=== PATIENT | female | born 1960 | race Caucasian/White ===

== ENCOUNTER 2018-07-21 15:22 | Emergency (ER) | payer BC ==
[~2018-07-21] VITALS: Ht 162.6 cm; Wt 95.2 kg
[~2018-07-21 15:22] MED LIST: BENZ100A; CARI350; CLIN300; CYCL10 PO; DOXY100 PO; ERGO50000 PO; ETOD400; HYDACE10B PO; HYDACE5 PO; IBUP800 PO; META800 PO; RXCYCL10 PO; SERT100
[2018-07-21] MEDS ORDERED: CYAN500 (16:38)
[2018-07-21] MEDS ORDERED: FLAX (16:38)
== END 2018-07-21 16:41 | disposition home or self-care (01) ==
LOC: ER 15:22
DX: M25.511 Pain in right shoulder (principal); M25.531 Pain in right wrist; M25.551 Pain in right hip; M25.521 Pain in right elbow; G89.29 Other chronic pain; R73.03 Prediabetes; Z87.01 Personal history of pneumonia (recurrent); Z88.0 Allergy status to penicillin; Z88.1 Allergy status to other antibiotic agents; Z88.5 Allergy status to narcotic agent; Z79.899 Other long term (current) drug therapy; W19.XXXA Unspecified fall, initial encounter
CPT/HCPCS: 73030; 73110; 73502

== ENCOUNTER 2020-12-02 21:47 | Emergency (ER) | payer OTHER ==
[~2020-12-02] VITALS: Ht 162.6 cm; Wt 93.9 kg
[~2020-12-02 21:47] MED LIST changes: +CYAN500; +FLAX
[2020-12-02] MEDS ORDERED: Acerola C500 MG PO (22:41)
[2020-12-02 23:05] LABS: Calcium, Ionized (POC) 1.04 mmol/L (1.10-1.46); Chloride (POC) 99 mmol/L (98-108); Glucose (ISTAT POC) 118 mg/dL (70-99); Hemoglobin (POC) 13.9 g/dL (12.0-16.0); Potassium (POC) 3.8 mmol/L (3.5-5.5); Sodium (POC) 136 mmol/L (135-148); Total CO2 (POC) 25 mmol/L (21-32)
== END 2020-12-03 00:38 | disposition home or self-care (01) ==
LOC: ER 21:47
PROVIDERS: Emergency Medicine
DX: U07.1 COVID-19 (principal); Z88.0 Allergy status to penicillin; Z88.1 Allergy status to other antibiotic agents; Z88.5 Allergy status to narcotic agent
CPT/HCPCS: 36415; 80047; 85014; 96361; 96374; 99283-25; J1885; J7030

== ENCOUNTER 2022-12-15 23:01 | Emergency (ER) | payer OTHER ==
[~2022-12-15] VITALS: Ht 162.6 cm; Wt 97.5 kg
[~2022-12-15 23:01] MED LIST changes: +Acerola C500 MG PO
[2022-12-15 23:41] VITALS: BP 155/87
[2022-12-15] MEDS ORDERED: GLIP5 PO (23:45)
[2022-12-15] MEDS ORDERED: ATORVASTATIN CA20 MG PO (23:45)
[2022-12-15] MEDS ORDERED: LOSA50 PO (23:45)
== END 2022-12-16 01:04 | disposition home or self-care (01) ==
LOC: ER 23:01
DX: S40.011A Contusion of right shoulder, initial encounter (principal); S80.01XA Contusion of right knee, initial encounter; W18.30XA Fall on same level, unspecified, initial encounter
CPT/HCPCS: 73030; 73562-RT; 99283-25

== ENCOUNTER 2023-05-20 22:09 | Emergency (ER) | payer OTHER ==
[~2023-05-20] VITALS: Ht 162.6 cm; Wt 99.8 kg
[~2023-05-20 22:09] MED LIST changes: +ATORVASTATIN CA20 MG PO; +GLIP5 PO; +LOSA50 PO
[2023-05-20] MEDS ORDERED: Ondansetron HCl 2 MG / ML 2ML Vial IV PRN (22:40)
[2023-05-20 22:54] LABS: BASOPHILS ABSOLUTE AUTO 0.04 K/mm3 (0.00-0.23); BASOPHILS PERCENT AUTO 0 % (0-2); EOSINOPHILS ABSOLUTE AUTO 0.01 K/mm3 (0.00-0.68); EOSINOPHILS PERCENT AUTO 0 % (0-6); Hematocrit 44.3 % (33.0-51.0); IMMATURE GRAN ABSOLUTE AUTO 0.03 K/mm3 (0.00-0.10); IMMATURE GRAN PERCENT AUTO 0 % (0-1); LYMPHOCYTES ABSOLUTE AUTO 2.54 K/mm3 (0.84-5.20); LYMPHOCYTES PERCENT AUTO 24 % (21-46); MONOCYTES ABSOLUTE AUTO 0.95 K/mm3 (0.16-1.47); MONOCYTES PERCENT AUTO 9 % (4-13); Mean Corpuscular HGB 32.1 pg (26.0-34.0); Mean Corpuscular HGB Conc 33.9 g/dL (31.5-36.5); Mean Corpuscular Volume 95 fL (80-100); Mean Platelet Volume 9.9 fL (9.1-12.4); NEUTROPHILS ABSOLUTE AUTO 7.21 K/mm3 (1.96-9.15); NEUTROPHILS PERCENT AUTO 67 % (41-73); Platelet Count 240 K/mm3 (150-400); RDW Coefficient Variation 12.5 % (11.7-14.2); RDW Standard Deviation 43.5 fL (35.1-46.3); Red Blood Cell Count 4.68 M/mm3 (3.80-5.20); White Blood Cell Count 10.78 K/mm3 (4.00-11.30)
[2023-05-20 23:12] LABS: Albumin, Blood 3.3 g/dL (3.4-5.0); Albumin/Globulin Ratio 0.8 (0.8-1.8); Bilirubin, Total 0.6 mg/dL (0.1-1.0); Bun/Creatinine Ratio 14.5 (12.0-20.0); Calcium, Blood 8.7 mg/dL (8.5-10.1); Creatinine, Blood 0.76 mg/dL (0.40-1.00); Globulin, Blood 4.2 g/dL (2.2-4.0); Potassium, Blood 3.9 mmol/L (3.5-5.5); Total Protein, Blood 7.5 g/dL (6.4-8.2)
[2023-05-21] MEDS ORDERED: Ondansetron HCl 2 MG / ML 2ML Vial IV ONE (01:20)
[2023-05-21] MEDS ORDERED: Ketorolac Tromethamine 15mg Vial IV ONE (01:20)
[2023-05-21 02:37] LABS: Influenza A, PCR NEGATIVE (NEGATIVE); Influenza B, PCR NEGATIVE (NEGATIVE); Resp Syncytial Virus, PCR NEGATIVE (NEGATIVE)
[2023-05-21 02:41] LABS: SARS-Cov-2 (COVID-19) PCR, MMC POSITIVE (NEGATIVE)
[2023-05-21] MEDS ORDERED: ONDA4ODT MM (03:42)
[2023-05-21 03:58] VITALS: BP 104/75
== END 2023-05-21 03:59 | disposition home or self-care (01) ==
LOC: ER 22:09
PROVIDERS: Emergency Medicine
DX: U07.1 COVID-19 (principal); A08.39 Other viral enteritis; Z88.0 Allergy status to penicillin; Z88.1 Allergy status to other antibiotic agents; Z88.5 Allergy status to narcotic agent; Z79.899 Other long term (current) drug therapy
CPT/HCPCS: 0241U; 80053; 84484; 85025; 93005; 93010; 96374; 96375; 99284-25; J1885; J2405